=== PATIENT | male | born 1970 | race Caucasian/White ===

== ENCOUNTER 2021-08-15 13:31 | Emergency (ER) | payer BC, SELFPAY ==
--- NOTE | ~2021-08-15 | US_ITS ---
EXAMINATION: US VENOUS ULTRASOUND WITH DOPPLER LOWER EXTREMITY, LEFT CLINICAL INFORMATION: Left lower extremity edema. COMPARISON: None TECHNIQUE: Ultrasound of the deep veins is performed from the hip to the calf with compression sonography and color and pulse Doppler assessment. Spectral analysis with color-flow imaging is performed. FINDINGS: There is normal venous compression and respiratory variation and augmented flow. The visualized common femoral vein, superficial femoral vein, profunda femoral vein, popliteal vein, and the trifurcation region shows no evidence of deep venous thrombosis. There is no significant popliteal fossa cyst. There is edema seen in the soft tissues of the left lower extremity. Left groin lymph node measuring 3.9 x 0.8 x 2.2 cm. US/US venous duplex LE LT IMPRESSION: No DVT demonstrated in the left lower extremity. Nonspecific prominent left groin lymph node measuring 3.9 x 0.8 x 2.2 cm.
[2021-08-15 14:00] VITALS: BP 140/76; PULSE 100; RESP 19; TEMP 36.6; O2SAT 97; BMI 29.0
--- NOTE | 2021-08-15 16:13 | ED_ITS ---
HPI - General Adult General Chief complaint: General Medical <NORTH Barrientos - Last Filed: 08/15/21 18:21> Stated complaint: leg infection <NORTH Barrientos - Last Filed: 08/15/21 18:21> Time Seen by Provider: 08/15/21 15:31 <NORTH Barrientos - Last Filed: 08/15/21 18:21> History of Present Illness HPI narrative: patient complains of worsening left leg cellulitis, it began several days ago with increasing redness to the left lower leg, he went to another hospital 48 hours ago was given a dose of Rocephin IV and a home prescription for Bactrim The redness has been spreading and now the leg is more swollen and he has been compliant with the Bactrim He denies any fever no chills no swelling of any joint no significant pain except when he changes position of his leg from laying down to standing <NORTH Barrientos - Last Filed: 08/15/21 18:21> Related Data Allergies/adverse reactions: Allergies Allergy/AdvReac Type Severity Reaction Status Date / Time No Known Allergies Allergy Verified 08/15/21 15:31 <NORTH Barrientos - Last Filed: 08/15/21 18:21> Review of Systems Review of Systems: positive for left leg redness swelling Negatives are no fever no chills no dizziness no weakness no headache no neck pain no chest pain no shortness of breath no pain with deep breath no abdominal pain no nausea or vomiting no changes to bowel or bladder no dysuria no incontinence no joint pains no loss of sensation or strength <NORTH Barrientos - Last Filed: 08/15/21 18:21> Yes all other systems are reviewed and are negative <NORTH Barrientos - Last Filed: 08/15/21 18:21> PMFSH Past Medical History Source: nursing notes reviewed <NORTH Barrientos - Last Filed: 08/15/21 18:21> Medical History: Medical History (Updated 08/15/21 @ 18:20 by NORTH Barrientos) Asthma <NORTH Barrientos - Last Filed: 08/15/21 18:21> Social History Social History: Social History Advance Directives: No Advance Directives Information Provided: No <NORTH Barrientos - Last Filed: 08/15/21 18:21> Physical Exam Vital Signs: Vital Signs: Last Vital Signs Temp 98.7 F 08/15/21 21:33 Pulse 86 08/15/21 21:33 Resp 16 08/15/21 21:33 BP 136/83 08/15/21 21:33 Pulse Ox 97 08/15/21 21:33 BMI result Body Mass Index 29.0 <NORTH Barrientos - Last Filed: 08/15/21 18:21> Vital Signs: Last Vital Signs Temp 98.7 F 08/15/21 21:33 Pulse 86 08/15/21 21:33 Resp 16 08/15/21 21:33 BP 136/83 08/15/21 21:33 Pulse Ox 97 08/15/21 21:33 BMI result Body Mass Index 29.0 <NORTH Nunes - Last Filed: 08/15/21 22:34> general appearance comfortable relax no acute distress Head is normocephalic atraumatic The pharynx is clear Neck is supple The chest is clear to auscultation Heart no murmur auscultated Abdomen soft nontender Extremity exam there is full range of motion in all joints including the left knee and left ankle The left leg shows significant redness and swelling, the redness is beyond the marked lines from previous hospital visit There is a small blister on the back of his ankle where he said issue has been rubbing against the infected area, otherwise there is no fluctuance or other wound It is neurovascular intact distal Neuro no focal motor sensory deficits <NORTH Barrientos - Last Filed: 08/15/21 18:21> Course Course Course Narrative: patient with left leg cellulitis that has worsened with treatment only with Bactrim Patient is otherwise well-appearing An ultrasound of the left leg was negative it did not show any blood clots Labs were sent white count was normal but lactate was 2.5 Labs were otherwise unremarkable Case was discussed with attending physician and plan is to give 2 L of fluid and recheck lactate and re-evaluate patient after IV Rocephin and hydration Patient does want to go home if possible Case is signed out at 18:00 to physician enrique woodruff to re-evaluate and dispo patient after hydration and repeat lactate <NORTH Barrientos - Last Filed: 08/15/21 18:21> Reevaluation(s) Reevaluation #1: Patient's repeat lactate is 1.1. Patient is feeling better and would like to go home. Will add Keflex to patient's Bactrim <NORTH Nunes - Last Filed: 08/15/21 22:34> Medical Decision Making Lab Data Lab results reviewed: Yes I reviewed the patient's lab results. <NORTH Barrientos - Last Filed: 08/15/21 18:21> Result diagrams: : 08/15/21 16:51 08/15/21 16:51 <NOTRH Barrientos - Last Filed: 08/15/21 18:21> Labs: Lab Results 08/15/21 08/15/21 08/15/21 Range/Units 16:49 16:51 16:51 WBC 8.4 (4.8-10.8) X10*3/uL RBC 4.61 (4.60-5.80) X10*6/uL Hgb 13.9 L (14.0-18.0) g/dl Hct 39.9 L (42.0-52.0) % MCV 86.6 (80.0-98.0) fL MCH 30.2 (27.0-33.0) pg MCHC 34.8 (31.0-36.0) g/dl RDW 11.7 (11.0-16.0) % Plt Count 240 (160-400) X10*3/uL MPV 9.0 L (9.4-12.4) fL Immature Gran % (Auto) 1.0 H (0.0-0.4) % Neut % (Auto) 68.9 (45-73) % Lymph % (Auto) 16.5 L (20-40) % [place] % (Auto) 11.3 H (2-11) % Eos % (Auto) 1.9 (0-4) % Baso % (Auto) 0.4 (0-2) % Lymph # (Auto) 1.4 (1.2-4.9) X10*3/uL [place] # (Auto) 1.0 (0.1-1.2) X10*3/uL Eos # (Auto) 0.2 (0.0-0.4) X10*3/uL Baso # (Auto) 0.0 (0.0-0.2) X10*3/uL Abs Immat Gran (auto) 0.08 H (0.00-0.03) X10*3/uL Absolute Neuts (auto) 5.8 (2.0-8.3) x10*3/uL Absolute Nucleated RBC 0.000 (0.0-0.012) X10*3/uL Nucleated RBC % (auto) 0.0 (0.0-0.2) /100WBC Sodium 140 (135-145) mmol/L Potassium 4.1 (3.3-5.1) mmol/L Chloride 102 (96-108) mmol/L Carbon Dioxide 29 (22-29) mmol/L Anion Gap 13 (12-20) BUN 16 (9-16) mg/dL Creatinine 0.86 (0.5-1.4) mg/dL Estim Creat Clear Calc 104.0 Estimated GFR > 60 Random Glucose 102 (60-115) mg/dL Lactic Acid 2.5 H* (0.5-2.0) mmol/L Lactic Acid F/U @ 2Hr (0.5-2.0) mmol/L Calcium 8.8 (8.4-10.2) mg/dL COVID-19 (JASON) (Negative) COVID-19 Clin Com 08/15/21 08/15/21 Range/Units 18:23 21:22 WBC (4.8-10.8) X10*3/uL RBC (4.60-5.80) X10*6/uL Hgb (14.0-18.0) g/dl Hct (42.0-52.0) % MCV (80.0-98.0) fL MCH (27.0-33.0) pg MCHC (31.0-36.0) g/dl RDW (11.0-16.0) % Plt Count (160-400) X10*3/uL MPV (9.4-12.4) fL Immature Gran % (Auto) (0.0-0.4) % Neut % (Auto) (45-73) % Lymph % (Auto) (20-40) % [place] % (Auto) (2-11) % Eos % (Auto) (0-4) % Baso % (Auto) (0-2) % Lymph # (Auto) (1.2-4.9) X10*3/uL [place] # (Auto) (0.1-1.2) X10*3/uL Eos # (Auto) (0.0-0.4) X10*3/uL Baso # (Auto) (0.0-0.2) X10*3/uL Abs Immat Gran (auto) (0.00-0.03) X10*3/uL Absolute Neuts (auto) (2.0-8.3) x10*3/uL Absolute Nucleated RBC (0.0-0.012) X10*3/uL Nucleated RBC % (auto) (0.0-0.2) /100WBC Sodium (135-145) mmol/L Potassium (3.3-5.1) mmol/L Chloride (96-108) mmol/L Carbon Dioxide (22-29) mmol/L Anion Gap (12-20) BUN (9-16) mg/dL Creatinine (0.5-1.4) mg/dL Estim Creat Clear Calc Estimated GFR Random Glucose (60-115) mg/dL Lactic Acid (0.5-2.0) mmol/L Lactic Acid F/U @ 2Hr 1.1 (0.5-2.0) mmol/L Calcium (8.4-10.2) mg/dL COVID-19 (JASON) Negative (Negative) COVID-19 Clin Com See Note <NORTH Barrientos - Last Filed: 08/15/21 18:21> Lab Results 08/15/21 08/15/21 08/15/21 Range/Units 16:49 16:51 16:51 WBC 8.4 (4.8-10.8) X10*3/uL RBC 4.61 (4.60-5.80) X10*6/uL Hgb 13.9 L (14.0-18.0) g/dl Hct 39.9 L (42.0-52.0) % MCV 86.6 (80.0-98.0) fL MCH 30.2 (27.0-33.0) pg MCHC 34.8 (31.0-36.0) g/dl RDW 11.7 (11.0-16.0) % Plt Count 240 (160-400) X10*3/uL MPV 9.0 L (9.4-12.4) fL Immature Gran % (Auto) 1.0 H (0.0-0.4) % Neut % (Auto) 68.9 (45-73) % Lymph % (Auto) 16.5 L (20-40) % [place] % (Auto) 11.3 H (2-11) % Eos % (Auto) 1.9 (0-4) % Baso % (Auto) 0.4 (0-2) % Lymph # (Auto) 1.4 (1.2-4.9) X10*3/uL [place] # (Auto) 1.0 (0.1-1.2) X10*3/uL Eos # (Auto) 0.2 (0.0-0.4) X10*3/uL Baso # (Auto) 0.0 (0.0-0.2) X10*3/uL Abs Immat Gran (auto) 0.08 H (0.00-0.03) X10*3/uL Absolute Neuts (auto) 5.8 (2.0-8.3) x10*3/uL Absolute Nucleated RBC 0.000 (0.0-0.012) X10*3/uL Nucleated RBC % (auto) 0.0 (0.0-0.2) /100WBC Sodium 140 (135-145) mmol/L Potassium 4.1 (3.3-5.1) mmol/L Chloride 102 (96-108) mmol/L Carbon Dioxide 29 (22-29) mmol/L Anion Gap 13 (12-20) BUN 16 (9-16) mg/dL Creatinine 0.86 (0.5-1.4) mg/dL Estim Creat Clear Calc 104.0 Estimated GFR > 60 Random Glucose 102 (60-115) mg/dL Lactic Acid 2.5 H* (0.5-2.0) mmol/L Lactic Acid F/U @ 2Hr (0.5-2.0) mmol/L Calcium 8.8 (8.4-10.2) mg/dL COVID-19 (JASON) (Negative) COVID-19 Clin Com 08/15/21 08/15/21 Range/Units 18:23 21:22 WBC (4.8-10.8) X10*3/uL RBC (4.60-5.80) X10*6/uL Hgb (14.0-18.0) g/dl Hct (42.0-52.0) % MCV (80.0-98.0) fL MCH (27.0-33.0) pg MCHC (31.0-36.0) g/dl RDW (11.0-16.0) % Plt Count (160-400) X10*3/uL MPV (9.4-12.4) fL Immature Gran % (Auto) (0.0-0.4) % Neut % (Auto) (45-73) % Lymph % (Auto) (20-40) % [place] % (Auto) (2-11) % Eos % (Auto) (0-4) % Baso % (Auto) (0-2) % Lymph # (Auto) (1.2-4.9) X10*3/uL [place] # (Auto) (0.1-1.2) X10*3/uL Eos # (Auto) (0.0-0.4) X10*3/uL Baso # (Auto) (0.0-0.2) X10*3/uL Abs Immat Gran (auto) (0.00-0.03) X10*3/uL Absolute Neuts (auto) (2.0-8.3) x10*3/uL Absolute Nucleated RBC (0.0-0.012) X10*3/uL Nucleated RBC % (auto) (0.0-0.2) /100WBC Sodium (135-145) mmol/L Potassium (3.3-5.1) mmol/L Chloride (96-108) mmol/L Carbon Dioxide (22-29) mmol/L Anion Gap (12-20) BUN (9-16) mg/dL Creatinine (0.5-1.4) mg/dL Estim Creat Clear Calc Estimated GFR Random Glucose (60-115) mg/dL Lactic Acid (0.5-2.0) mmol/L Lactic Acid F/U @ 2Hr 1.1 (0.5-2.0) mmol/L Calcium (8.4-10.2) mg/dL COVID-19 (JASON) Negative (Negative) COVID-19 Clin Com See Note <NORTH Nunes - Last Filed: 08/15/21 22:34> Discharge Plan Discharge Clinical Impression: Cellulitis of left leg <NORTH Barrientos - Last Filed: 08/15/21 18:21>
[2021-08-15 16:58] LABS: MANUAL DIFF FLAG NO
[2021-08-15 16:59] LABS: Basophils Percent Auto 0.4 % (0-2); Eosinophils Absolute Auto 0.2 X10*3/uL (0.0-0.4); Eosinophils Percent Auto 1.9 % (0-4); Hematocrit 39.9 % (42.0-52.0); Hemoglobin 13.9 g/dl (14.0-18.0); Imm Gran Abs Auto 0.08 X10*3/uL (0.00-0.03); Lymphocytes Absolute Auto 1.4 X10*3/uL (1.2-4.9); Lymphocytes Percent Auto 16.5 % (20-40); Mean Corpuscular HGB Conc 34.8 g/dl (31.0-36.0); Mean Corpuscular Hemoglobin 30.2 pg (27.0-33.0); Mean Corpuscular Volume 86.6 fL (80.0-98.0); Monocytes Percent Auto 11.3 % (2-11); Neutrophils Absolute Auto 5.8 x10*3/uL (2.0-8.3); Neutrophils Percent Auto 68.9 % (45-73); Platelet Count 240 X10*3/uL (160-400); Red Blood Count 4.61 X10*6/uL (4.60-5.80); Red Cell Distribution Width 11.7 % (11.0-16.0); White Blood Count 8.4 X10*3/uL (4.8-10.8)
[2021-08-15 17:12] LABS: Anion Gap 13 (12-20); Blood Urea Nitrogen 16 mg/dL (9-16); Calcium 8.8 mg/dL (8.4-10.2); Carbon Dioxide 29 mmol/L (22-29); Chloride 102 mmol/L (96-108); Estimated Glomerular Filt Rate > 60; Glucose Random 102 mg/dL (60-115); Potassium 4.1 mmol/L (3.3-5.1); Sodium 140 mmol/L (135-145)
[2021-08-15 17:19] LABS: Lactic Acid 2.5 mmol/L (0.5-2.0)
[2021-08-15 18:03] VITALS: BP 152/81; PULSE 84; RESP 16; TEMP 36.7; O2SAT 98
[2021-08-15] MEDS: 0.9 % Sodium Chloride 1,000 ML 999 ML IVCONT ×2 (18:11→19:44)
[2021-08-15] MEDS: cefTRIAXone sodium 1 GM in 0.9 % Sodium Chloride 50 ML IV (18:12)
[2021-08-15] MEDS: Diphth,Pertus(ACell),Tet Adult 0.5 ML SYRINGE IM (18:45)
[2021-08-15 18:57] LABS: Reflex Lactate? Lactic Acid Added
[2021-08-15 19:03] LABS: COVID-19 Test Negative (Negative); IDNOW Serial# 08D9AD1C
[2021-08-15 21:33] VITALS: BP 136/83; PULSE 86; RESP 16; TEMP 37.1; O2SAT 97
[2021-08-15 21:38] LABS: ~Lactic Acid-LAB USE ONLY 1.1 mmol/L (0.5-2.0)
== END 2021-08-15 23:02 | disposition home or self-care (01) ==
PROVIDERS: Physician Assistant Medical; Emergency Provider Emergency Medicine
DX: L03.116 Cellulitis of left lower limb (principal); R60.0 Localized edema; Z20.822 Contact with and (suspected) exposure to COVID-19
CPT/HCPCS: 36415; 80048; 83605; 85025; 87040; 87071; 87205; 87635; 90471; 90715; 93971; 96361; 96365; 99284; J0696